=== PATIENT | male | born 1955 | race Caucasian/White ===

== ENCOUNTER 2020-03-20 05:52 | Day surgery (SDC) | payer MEDICARE, BC ==
[~2020-03-20 05:52] MED LIST: Dextrose 5%-0.45% NaCl 1,000 ML IV SCH; Sodium Chloride 0.9% 10 ML Syringe FLUSH PRN
[2020-03-20] MEDS ORDERED: Midazolam 1 MG/ML 2 ML SDV IV ONE ×7 (05:53→06:51)
[2020-03-20] MEDS ORDERED: fentaNYL 100 MCG/2 ML SDV IV ONE ×5 (05:53→06:58)
[2020-03-20] MEDS ORDERED: Dextrose 5%-0.45% NaCl 1,000 ML IV SCH (06:00)
[2020-03-20] MEDS ORDERED: Midazolam 1 MG/ML 2 ML SDV ONE (06:11)
[2020-03-20] MEDS ORDERED: fentaNYL 100 MCG/2 ML SDV ONE (06:12)
--- NOTE | 2020-03-20 12:06 | OR ---
DATE: 03/20/2020 PROCEDURE NAME: Total colonoscopy, NBI, and snare polypectomy. INSTRUMENT USED: [id number] Olympus video colonoscope. PREMEDICATIONS: Fentanyl 150 mcg intravenous, Versed 4 mg intravenous. Nasal O2 cannula. The procedure was done under pulse oximetry, BP recording, and director of cardiac rehabilitation. INDICATION: The patient with rectal bleeding. Colonoscopic examination is done for detection of any polypoid lesions and removal, endoscopic hemostasis therapy if needed. DESCRIPTION OF PROCEDURE: Initial rectal exam showed small internal hemorrhoids without bleeding from them. The colonoscope was passed with ease. Scattered diverticula were noted in the distal left colon along with deformity. In the proximal sigmoid colon at around 20 cm proximal to the anal verge, more than 1 cm sized pedunculated polyp was noted, NBI views were obtained, photographs were taken, snare polypectomy was done, the tissue was retrieved and sent for histopathology. Photographs were taken of the polypectomy site without any bleeding from it. The scope was passed with ease up to the ileocecal area. Photographs were taken of normal-appearing cecum identified by double-bulged ileocecal folds. No bleeding was noted from any of the visualized areas at the commencement of the examination and bowel preparation was found to be adequate. Wildrose scale 3 in all the regions, total score 9. No stricture. No vascular ectasia. No large isolated ulcerations seen. No evidence of diffuse inflammatory bowel disease in the form of friability, contact bleeding, or ulcerations. Probing the proximal sides of folds and flexures using adequate distention and clearing up the stool material, withdrawal of the scope was made. Cecum to rectum time over 6 minutes. No bleeding was noted from any of the visualized areas at the completion of examination. IMPRESSION: 1. Internal hemorrhoids. 2. Diverticulosis. 3. Sigmoid colonic polyp. The patient tolerated the procedure well. [facility] /[id number]
== END 2020-03-20 09:15 | disposition home or self-care (01) ==
LOC: DL.ENDO 05:52
PROVIDERS: ATTEND Internal Medicine Gastroenterology
DX: D12.5 Benign neoplasm of sigmoid colon (principal); K64.8 Other hemorrhoids; K57.31 Diverticulosis of large intestine without perforation or abscess with bleeding; U07.1 COVID-19; H61.21 Impacted cerumen, right ear; I10 Essential (primary) hypertension; N40.0 Benign prostatic hyperplasia without lower urinary tract symptoms; N52.9 Male erectile dysfunction, unspecified; E78.00 Pure hypercholesterolemia, unspecified; E83.52 Hypercalcemia; Z98.890 Other specified postprocedural states
CPT/HCPCS: 88305; J2250; J3010; J7042

== ENCOUNTER 2023-05-25 06:27 | Day surgery (SDC) | payer MEDICARE, BC ==
[2023-05-25] MEDS: Dextrose 5%-0.45% NaCl 1,000 ML IV SCH (06:44)
[2023-05-25] MEDS ORDERED: Midazolam 1 MG/ML 2 ML SDV ONE (07:00)
[2023-05-25] MEDS ORDERED: fentaNYL 100 MCG/2 ML SDV ONE (07:00)
[2023-05-25] MEDS: fentaNYL 100 MCG/2 ML SDV IV ONE ×2 (07:06→07:07)
[2023-05-25] MEDS: Midazolam 1 MG/ML 2 ML SDV IV ONE ×5 (07:07→07:14)
== END 2023-05-25 08:40 | disposition home or self-care (01) ==
LOC: DL.ENDO 06:27
PROVIDERS: ATTEND Internal Medicine Gastroenterology
DX: Z12.11 Encounter for screening for malignant neoplasm of colon (principal); K62.1 Rectal polyp; K57.30 Diverticulosis of large intestine without perforation or abscess without bleeding; E78.00 Pure hypercholesterolemia, unspecified; E66.9 Obesity, unspecified; Z68.36 Body mass index [BMI] 36.0-36.9, adult; Z79.899 Other long term (current) drug therapy
CPT/HCPCS: 45385; J2250; J3010; J7042; 88305